=== PATIENT | female | born 1995 | race Caucasian/White ===

== ENCOUNTER 2017-01-01 11:02 | Inpatient (IN) | payer OTHER ==
[2016-12-31 16:02] VITALS: BMI 22.0
--- NOTE | 2016-12-31 16:22 | HISTORY & PHYSICAL EXAMINATION ---
DATE OF ADMISSION: 01/01/2017 CHIEF COMPLAINT: Right knee pain. HISTORY OF PRESENT ILLNESS: The patient is a 21-year-old female who presented to the office today with right knee pain. She states that she was at gymnastics tumbling when she went to stick a landing and she felt her knee crack and pop. She had pain immediately laterally. X-rays of the right knee demonstrated a lateral tibial plateau fracture with mild displacement. The patient is scheduled for a ORIF of the right tibial plateau fracture. PAST MEDICAL HISTORY: The patient denies any past medical history. PAST SURGICAL HISTORY: Significant for wisdom teeth removed. SOCIAL HISTORY: She denies alcohol use. She denies smoking or tobacco use. She denies IV or illegal drug use. She is currently a student. FAMILY HISTORY: Noncontributory. ALLERGIES: SHE HAS AN ADHESIVE ALLERGY OF WHICH SHE GETS RED RAISED AREA AROUND THE ADHESIVES. MEDICATIONS: control, oxycodone 5 mg every 4 hours as needed for pain. REVIEW OF SYSTEMS: She denies headaches, fevers, chills, double vision, blurry vision, sore throat, cough, chest pain, nausea, vomiting, diarrhea, constipation, numbness and tingling, tired urinary difficulties thoughts to harm herself or harm others or depression. She is positive for joint pain and stiffness of the right knee. OBJECTIVE: GENERAL APPEARANCE: The patient is a 21-year-old female sitting in no acute distress. She is well dressed, well nourished. She is awake, alert and oriented x3. VITAL SIGNS: She is 5 feet 4 inches tall, weight 130 pounds, and blood pressure 126/78. HEENT: Normocephalic, atraumatic. Extraocular movements are intact. PERRLA. Mucosa is moist. No septal deviation. NECK: Supple with no lymphadenopathy, no JVD, no thyromegaly. HEART: Regular rate and rhythm. No murmurs or gallops. LUNGS: Clear to auscultation. No wheezing or rhonchi. ABDOMEN: Soft, nontender, nondistended. Normal bowel sounds, no hepatosplenomegaly. EXTREMITIES: Paying particular attention to the right knee, she has swelling and point tenderness over the lateral aspect of her knee. She has decreased range of motion. NEUROLOGIC: Cranial nerves II-XII are intact. Pulses were compared bilaterally and were equal. IMAGING: Three views of the right knee demonstrated a lateral tibial plateau fracture with displacement. IMPRESSION: Right tibial plateau fracture. PLAN: The patient is scheduled for an ORIF of the right tibial plateau fracture. Risks and benefits were discussed with the patient and included but not limited to infection, DVT, pain, stiffness, damage to blood vessels, damage to nerves, failure to relieve her symptoms and anesthesia risks and were all discussed. The patient understands these risks and wishes to proceed. All questions were answered to her satisfaction. NAWAF
[~2017-01-01] VITALS: Ht 162.6 cm; Wt 59.1 kg
[2017-01-01] VITALS (7 sets, daily range): BP systolic 109–126; BP diastolic 69–80; PULSE 82–109; TEMP 36.7–37.3; O2SAT 94–99; Ht 162.6 cm; Wt 59.1 kg
[~2017-01-01 11:02] MED LIST: BCPILLS PO; CEFAZOLIN 1000MG IV PUSH 5 ML IV SCH; LACTATED RINGER'S 1000ML 1,000 ML IV SCH; OXYC1TAB3 PO
[2017-01-01] MEDS ORDERED: ATROPINE SULFATE 0.1 MG/ML 5ML SYR IV PRN (12:15)
[2017-01-01] MEDS ORDERED: EpHEDrine SULFATE INJ 50 MG/ML AMP IV PRN (12:15)
[2017-01-01] MEDS ORDERED: SCOPOLAMINE 1.5 MG TDSY TD ONE (12:15)
[2017-01-01] MEDS ORDERED: ONDANSETRON INJ 2 MG/ML 2 ML VIAL IV PRN (12:15)
[2017-01-01 12:34] LABS: PREG INTERNAL NEGATIVE QC NEG CLEAR BACKGROUND; PREG INTERNAL POSITIVE QC POS CONTROL LINE
[2017-01-01] MEDS ORDERED: FENTANYL CITRATE INJ 50 MCG/1 ML 2 ML VIAL ONE ×2 (12:39→16:06)
[2017-01-01] MEDS ORDERED: MIDAZOLAM HCL 1 MG/ML 2ML VIAL ONE (12:39)
--- NOTE | 2017-01-01 13:01 | History & Physical Bridge Note ---
H&P Re-Evaluation Bridge Note: I have examined the patient, reviewed the History & Physical and in the interval since the performance of the History & Physical I have noted the following changes of clinical significance: No changes noted
[2017-01-01] MEDS ORDERED: BUPIVACAINE/EPINEPHRINE 0.5% MPF 1:200,000 30 ML VIAL ONE (13:47)
[2017-01-01] MEDS ORDERED: HYDROmorphone INJ 2 MG/ML SYR/VIAL ONE (13:52)
[2017-01-01] MEDS ORDERED: HYDROmorphone INJ 2 MG/ML SYR/VIAL IV PRN (14:00)
[2017-01-01] MEDS ORDERED: PROPOFOL IV EMULSION 10 MG/ML 20 ML VIAL IV ONE (16:06)
[2017-01-01] MEDS ORDERED: DEXAMETHASONE SOD INJ 4 MG/ML VIAL ONE (16:06)
[2017-01-01] MEDS ORDERED: ONDANSETRON INJ 2 MG/ML 2 ML VIAL ONE ×2 (16:06→16:07)
[2017-01-01] MEDS ORDERED: LIDOCAINE HCL 2% 2 ML VIAL (20MG/ML) ONE (16:06)
[2017-01-01] MEDS ORDERED: MoRPHine SULFATE 2 MG/ML CARP IV PRN (16:30)
--- NOTE | 2017-01-01 16:45 | [facility] Operative Report ---
Operative Report Operative Date Jan 01, 2017. Pre-Operative Diagnosis Right tibial plateau fracture Post-Operative Diagnosis Right tibial plateau fracture plus lateral meniscus tear from the capsule and lateral capsular tear Procedure(s) Performed Right Open Reduction Internal Fixation Tibial Plateau Fracture, Lateral Meniscus Repair, Lateral Capsule Repair Surgeon Dr. Venkat Holly Quarter Trimmer Surgeon(s) Channing Singh PA-C Estimated Blood Loss 50mL Findings As above Specimens No pathology specimens per surgeon Drains none Anesthesia Gen. Complication(s) None Disposition Recovery Room / PACU Indications 21-year-old female who sustained an injury to the right knee performing a tumbling routine. She did several fluffs and the air landed on the right lower shoulder median operative angle. She sustained a displaced and compressed lateral tibial plateau fracture. He was displaced greater than 1 cm. Given the amount of displacement I recommended open reduction internal fixation. Description of Procedure Risks, benefits, and alternatives to surgery including but not limited to infection, pain, stiffness, nonunion, need for revision surgery, DVT, damage to blood vessels, damage to nerves, risks of anesthesia were discussed with the patient and they wished to proceed. The patient was identified and laterality was confirmed and marked. The patient received a preoperative antibiotic and was transferred to the operating room and placed in supine position and induced into general endotracheal anesthesia. A well-padded tourniquet was placed in the leg. The limb was then prepped and draped in the usual standard manner with ChloraPrep. The limb was exsanguinated and the tourniquet was inflated. I made a hockey style incision over the lateral aspect of leg and sharp incision through skin and then using Bovie electrocautery to achieve hemostasis. I incised through the iliotibial band fascia and dissect down to the fracture site. There was a "broke type displacement to the lateral fragment. I explored this anterior fracture line to gain entry to the more depressed intra-articular fragments. Under fluoroscopic guidance I used a curved osteotome to tamp the displaced fragments back up to the joint line. There was a tear of the lateral meniscus off the capsule (lateral meniscal capsular separation). I placed an ultra braid suture into the lateral meniscus and tagged for later repair. I then reduced the large anterolateral fragment and pinned it provisionally in place with 2 K wires. I then under fluoroscopic guidance positioned a 4 hole Synthes proximal tibial precontoured locking plate. Once I was satisfied with the positioning of the plate and provisionally pinned this into position. I confirmed reduction of the fracture on AP and lateral fluoroscopy views. I also confirmed plate placement and alignment. I then placed a rafting screw and the locking hole proximally. I placed a bone reduction clamp around the proximal tibia and compressed the fracture. I then placed a nonlocking screw distally reducing the plate to bone. I didn't confirmed reduction and alignment of the plate. I then placed the remaining raft screws proximally. I then placed the kickstand screws distally. I then examined her given the stability. She is stable to Senait's. Posterior drawer stable. She is stable to valgus stress however to varus stress she opened up laterally. I therefore extended my incision proximally and exposed the lateral collateral ligament. The ligament appeared to be intact. There is significant avulsion of the lateral capsule. I placed 2 ultra braid sutures into the capsule and then held tension on this as a re- examined knee and retensioning of the lateral capsule seemed to restore good stability to the knee. I passed the ultra braid suture for the lateral capsular repair through the holes in the proximal end of the tibial plate and tied these down while holding a valgus stress. I repeated this process for the sutures that were in the lateral meniscus tying this down to the plate for my lateral meniscal repair. The iliotibial band was loosely reapproximated with interrupted #1 Vicryl suture , but not overly tight as to prevent causing an iatrogenic compartment syndrome.. Subcutaneous tissues closed with interrupted 2-0 Vicryl suture. The skin was closed with interrupted 3-0 nylon. A sterile dressing was applied and a brace locked in extension was placed. All needle and sponge counts were correct at the end of the procedure. The patient was transferred to the PACU in stable condition without apparent complication. I attest to the content of the Intraoperative Record and any orders documented therein. Any exceptions are noted below.
[2017-01-01] MEDS: FENTANYL CITRATE INJ 50 MCG/1 ML 2 ML VIAL IV PRN ×3 (17:02→17:15)
--- NOTE | 2017-01-01 17:47 | Anesthesiology Progress Note ---
Anesthesia Post Op Note Date & Time Jan 01, 2017 at 17:47 Vital Signs Pain Intensity: 3 Vital Signs Past 12 Hours Date Time Temp Pulse Resp B/P (MAP) Pulse Ox O2 Delivery O2 Flow Rate FiO2 01/01/17 17:41 113/61 01/01/17 17:39 37.0 99 16 113/61 (77) 98 Nasal Cannula 2 Oxymask 01/01/17 17:38 106 11 01/01/17 17:38 107 11 97 01/01/17 17:37 120/70 01/01/17 17:34 104 17 98 01/01/17 17:34 107 17 01/01/17 17:31 111/60 01/01/17 17:29 100 13 99 01/01/17 17:29 105 13 01/01/17 17:26 111/57 01/01/17 17:24 107 10 98 01/01/17 17:24 108 10 01/01/17 17:21 111/63 01/01/17 17:19 100 10 97 01/01/17 17:19 101 10 01/01/17 17:18 92 19 97 01/01/17 17:18 93 19 01/01/17 17:16 110/54 01/01/17 17:13 116 13 01/01/17 17:13 115 13 98 01/01/17 17:11 111/71 01/01/17 17:08 103 12 01/01/17 17:08 100 12 99 01/01/17 17:06 118/53 01/01/17 17:03 104 17 01/01/17 17:03 103 17 99 01/01/17 17:01 117/59 01/01/17 16:59 113/89 01/01/17 16:58 37.0 107 18 113/59 100 Oxymask 10 01/01/17 11:37 36.8 109 20 126/80 (95) 98 Room Air Notes Mental Status: alert / awake / arousable, participated in evaluation Pt Amnestic to Procedure: Yes Nausea / Vomiting: adequately controlled Pain: adequately controlled Airway Patency, RR, SpO2: stable & adequate BP & HR: stable & adequate Hydration State: stable & adequate Anesthetic Complications: no major complications apparent
--- NOTE | 2017-01-01 19:43 | DIAGNOSTIC IMAGING REPORT ---
R TIBIA/FIBULA 2 VIEWS ROUTINE HISTORY: 21 years-old Female RT ORIF TIBIAL PLATEAU FX right lateral tibial plateau fracture. COMPARISON: Right knee radiographs 12/30/2016. TECHNIQUE: 2 spot fluoroscopic images of the right knee were obtained utilizing 301.1 seconds fluoroscopy time. FINDINGS: There has been interval ORIF of the depressed lateral tibial plateau fracture with lateral plate and screw fixation. There is improved alignment. Expected postsurgical swelling and deep tissue air noted laterally. No retained foreign body identified. IMPRESSION: Status post ORIF of the lateral tibial plateau fracture with improved alignment. The above report was generated using voice recognition software. It may contain grammatical, syntax or spelling errors. Electronically signed by: Gurinder Grissom M.D. 01/01/2017 7:42 PM Dictated Date/Time: 01/01/2017 7:40 PM
[2017-01-01] MEDS: CEFAZOLIN IV 1,000 MG in SYRINGE 0 ML IV SCH (20:11)
[2017-01-01] MEDS: OXYCODONE HCL IR 5 MG TAB (IMMEDIATE RELEASE) PO PRN (20:24)
[2017-01-01] MEDS: ACETAMINOPHEN 500 MG TAB PO SCH (21:05)
[2017-01-02 03:30] VITALS: BP 111/61; PULSE 77; TEMP 36.9; O2SAT 97
[2017-01-02] MEDS: CEFAZOLIN IV 1,000 MG in SYRINGE 0 ML IV SCH ×2 (04:10→12:05)
[2017-01-02] MEDS: OXYCODONE HCL IR 5 MG TAB (IMMEDIATE RELEASE) PO PRN ×4 (04:18→15:24)
[2017-01-02] MEDS: ACETAMINOPHEN 500 MG TAB PO SCH ×2 (05:39→13:39)
[2017-01-02 06:47] LABS: CREATININE 0.7 mg/dl (0.60-1.20)
[2017-01-02 07:27] VITALS: BP 102/56; PULSE 77; TEMP 37.1; O2SAT 98
--- NOTE | 2017-01-02 08:59 | Orthopedic Progress Note ---
Orthopedic Progress Note Date of Service Jan 02, 2017. Subjective Post OP Day: 1 Reports: feeling well, Denies: chest pain, SOB, nausea / vomiting, light headedness, calf pain Additional Notes: DOING WELL. WEARING BRACE. MOM IN THE ROOM Objective calves soft nontender, N/V intact, capillary refill less than 2 sec., dressing C /D/I, A&O x3, toes mobile Date Time Temp Pulse Resp B/P (MAP) Pulse Ox O2 Delivery O2 Flow Rate FiO2 01/02/17 07:27 37.1 77 18 102/56 (71) 98 Room Air 01/02/17 03:30 36.9 77 16 111/61 (78) 97 Room Air 01/01/17 23:25 37.3 95 16 118/70 (86) 96 Room Air 01/01/17 23:20 Room Air 01/01/17 21:00 37.3 104 16 117/69 (85) 96 Room Air 01/01/17 20:00 37.2 100 16 120/76 (91) 97 Room Air 01/01/17 19:00 36.9 82 16 113/70 (84) 94 Room Air 01/01/17 18:28 36.7 88 18 115/71 (86) 99 Room Air 01/01/17 18:00 95 Room Air 01/01/17 18:00 36.7 88 18 109/70 (83) 96 Room Air 01/01/17 17:41 113/61 01/01/17 17:39 37.0 99 16 113/61 (77) 98 Nasal Cannula 2 Oxymask 01/01/17 17:38 106 11 01/01/17 17:38 107 11 97 01/01/17 17:37 120/70 01/01/17 17:34 104 17 98 01/01/17 17:34 107 17 01/01/17 17:31 111/60 01/01/17 17:29 100 13 99 01/01/17 17:29 105 13 01/01/17 17:26 111/57 01/01/17 17:24 107 10 98 01/01/17 17:24 108 10 01/01/17 17:21 111/63 01/01/17 17:19 100 10 97 01/01/17 17:19 101 10 01/01/17 17:18 92 19 97 01/01/17 17:18 93 19 01/01/17 17:16 110/54 01/01/17 17:13 116 13 01/01/17 17:13 115 13 98 01/01/17 17:11 111/71 01/01/17 17:08 103 12 01/01/17 17:08 100 12 99 01/01/17 17:06 118/53 01/01/17 17:03 104 17 01/01/17 17:03 103 17 99 01/01/17 17:01 117/59 01/01/17 16:59 113/89 01/01/17 16:58 37.0 107 18 113/59 100 Oxymask 10 01/01/17 16:00 Room Air 01/01/17 11:37 36.8 109 20 126/80 (95) 98 Room Air Assessment & Plan Assessment: POD#1 SP ORIF R TIBIAL PLATEAU FX. Plan: DOING WELL WITH PAIN CONTROL MAINTAIN BRIDGER BRACE POSSIBLE DC LATER TODAY IF PAIN CONTROLLED AND DOES PT Inhouse Planning Pain Management: PO Tylenol, Oxy IR DVT Prophylaxis: TEDs, SCDs, Xarelto Discharge Planning Discharge Planning: home
[2017-01-02] MEDS ORDERED: RIVAROXABAN 10 MG TAB PO SCH ×2 (09:00)
--- NOTE | 2017-01-02 09:08 | Anesthesiology Progress Note ---
Anesthesia Post Op Note Date & Time Jan 02, 2017 at 09:08 Vital Signs Pain Intensity: 6.0 Vital Signs Past 12 Hours Date Time Temp Pulse Resp B/P (MAP) Pulse Ox O2 Delivery O2 Flow Rate FiO2 01/02/17 07:27 37.1 77 18 102/56 (71) 98 Room Air 01/02/17 03:30 36.9 77 16 111/61 (78) 97 Room Air 01/01/17 23:25 37.3 95 16 118/70 (86) 96 Room Air 01/01/17 23:20 Room Air Notes Mental Status: alert / awake / arousable, participated in evaluation Pt Amnestic to Procedure: Yes Nausea / Vomiting: adequately controlled Pain: adequately controlled Airway Patency, RR, SpO2: stable & adequate BP & HR: stable & adequate Hydration State: stable & adequate Anesthetic Complications: no major complications apparent
[2017-01-02 12:50] VITALS: BP 116/66; PULSE 97; TEMP 37.1; O2SAT 97
[2017-01-02] MEDS ORDERED: OXYC-57 PO (14:43)
[2017-01-02] MEDS ORDERED: XRL10 PO (14:43)
--- NOTE | 2017-01-02 14:54 | Discharge Instructions ---
Discharge Instructions Date of Service Jan 02, 2017. Admission Reason for Admission: Displaced Bicondylar Fx Of Right Tibia Discharge Discharge Diagnosis / Problem: Right Displaced Tibial Bicondylar Fracture Discharge Goals Goal(s): Decrease discomfort, Improve function Activity Recommendations Activity Limitations: per Instructions/Follow-up section Weightbearing Status: Right non-weightbearing . Instructions / Follow-Up Instructions / Follow-Up Ambulation with crutches. No weight on the right leg. Use brace at all times except when showering. You may remove while lying in bed or on sofa. DO NOT sleep without the brace on. No range of motion of the right knee until you see Dr Holly back in the office for the first post operative visit. You may shower in 72 hours. No direct shower pressure on the wound. No tub baths. Do not soak wound. Change your dressing 01/03/17. Then change daily thereafter. If you have no drainage, you may change the dressing every other day. Keep the leg elevated on 1 or 2 pillows when at rest to help with swelling. Ice pack to the knee regularly. Increase your activity as the leg allows. Follow up with Dr Holly or his PA in 2 weeks from the day of surgery. Call for an appointment. [phone] Current Hospital Diet Patient's current hospital diet: Regular Diet Discharge Diet Recommended Diet: Regular Diet Procedures Procedures Performed: Right Open Reduction Internal Fixation Tibial Plateau Fracture, Lateral Meniscus Repair, Lateral Capsule Repair Pending Studies Studies pending at discharge: no Medical Emergencies . Who to Call and When: Medical Emergencies: If at any time you feel your situation is an emergency, please call 911 immediately. . Non-Emergent Contact Non-Emergency issues call your: Surgeon Call Non-Emergent contact if: temperature is above 101.5, your pain is not controlled, your pain is worsening, wound has increased drainage, wound has increased redness . "Provider Documentation" section prepared by Rolando Ayala. . VTE Core Measure Inpt VTE Proph given/why not?: Other Anticoagulation, T.E.D. Stockings, SCD's [place] Drug Monitoring Program Search Results: patient reviewed within database, no issues identified
[2017-01-02 15:10] VITALS: BP 121/70; PULSE 114; TEMP 37.2; O2SAT 97
[2017-01-02 15:15] VITALS: BP 121/70; PULSE 114; TEMP 37.2; O2SAT 97
--- NOTE | 2017-01-10 11:58 | Discharge Summary ---
Orthopedic Discharge Summary Admission Date/Reason Jan 01, 2017 at 16:35 Displaced Bicondylar Fx Of Right Tibia. Discharge Date/Disposition Jan 02, 2017 Home Diagnosis Principal Diagnosis: S/P Right tibial plateau ORIF Medication Reconciliation as per discharge instructions Admission Physical Exam As per Admitting History & Physical. Hospital Course POD #1 patient was feeling well. Pain was controlled. She would be discharged later today as long as pain was still controlled. She was discharged home with self care and to follow up in the office in 10-14 days for suture removal. Discharge Instructions Please refer to the electronic Patient Visit Report (Discharge Instructions) for additional information.
== END 2017-01-02 16:00 | disposition home or self-care (01) | DRG 489 ==
LOC: C.ACU 11:02 → C.3E 16:35 → ENRESERV 17:31
PROVIDERS: ADMIT Orthopaedic Surgery; ATTEND Orthopaedic Surgery
PROC: 0SQC0ZZ Repair Right Knee Joint, Open Approach (ICD-10-PCS; principal; 2017-01-01 12:30)
PROC: 0QSG04Z Reposition Right Tibia with Internal Fixation Device, Open Approach (ICD-10-PCS; principal; 2017-01-01 12:30)
DX: S82.141A Displaced bicondylar fracture of right tibia, initial encounter for closed fracture (principal); S83.281A Other tear of lateral meniscus, current injury, right knee, initial encounter; X58.XXXA Exposure to other specified factors, initial encounter; Y93.43 Activity, gymnastics; Y99.8 Other external cause status